=== PATIENT | female | born 1935 | race Caucasian/White ===

== ENCOUNTER 2024-06-06 13:02 | Outpatient (AMB) | payer MEDICARE, OTHER, SELFPAY ==
--- NOTE | 2024-06-06 13:06 | MHC.OFFVIS ---
Vital Signs 06/06/24 13:27 Height 5 ft 5 in Weight 210 lb BMI 34.9 Intake Visit Reasons: Left shoulder pain and weakness Intake Note: Wendy is a 88 year old female who presents with complaints of progressively worsening left shoulder pain and weakness. The patient states that her symptoms have gotten worse over the last few years in spite of continued non operative treatments. The patient states that she has not been able to lift her left hand up to shoulder height for at least 1 year. She states that her brother underwent total shoulder replacement surgery at the [facility] and is doing quite well. She has tried Tylenol which gives her minimal relief. The patient did undergo bilateral total knee replacement surgery by Dr. Mejia several years ago. She reports minimal discomfort in her knees. Allergies No Known Allergies Allergy (Mild, Verified 06/06/24 13:27) NOT APPLICABLE Physical Exam Vital Signs: BMI result Body Mass Index 34.9 Const Other: Well-nourished well-developed very friendly female awake alert and oriented x3 in no acute distress Extrem Other: Left shoulder examination shows decreased active range of motion but almost full passive range of motion when compared to her right shoulder, 2/5 strength with supraspinatus testing, mild crepitus with range of motion, no instability Results Reviewed Results Reviewed: X-rays of the patient's left shoulder show glenohumeral joint degenerative changes, subchondral sclerosis, osteophyte formation, no acute bony abnormalities Assessment & Plan Assessment & Plan (1) Left shoulder pain: Code(s): M25.512 - Pain in left shoulder Category: Medical Plan Ms. Goodrich presents with progressively worsening left shoulder pain and weakness most likely due to chronic rotator cuff tearing and subsequent rotator cuff tear arthropathy. I had a lengthy discussion with the patient regarding the treatment options. The patient may be a candidate for left total shoulder replacement surgery. Thus, I will have her evaluated by my partner, Dr. Cruz. She will continue with her gentle [id number]-[id number] exercises in the meantime. Feel free to call me at any time should questions regarding her orthopedic management arise. Thank you very much for asking me to see this very friendly patient. I spent 21 minutes in reviewing the patient's records and imaging studies, seeing the patient and documenting in the medical record. Orders: Orders XR shoulder LT min 2V 06/06/24 M25.512 - Pain in left shoulder Coding Level of Care Code Est Pt Level 3 (75615) Complex EM visit Add On G2211 Diagnoses Left shoulder pain M25.512
[2024-06-06 13:27] VITALS: BMI 34.9
== END 2024-06-06 13:44 | disposition home or self-care (01) ==
PROVIDERS: PCP Physician Assistant Medical; Visit Provider Orthopaedic Surgery
DX: M25.512 Pain in left shoulder (principal)
CPT/HCPCS: 99213; G2211

== ENCOUNTER 2024-06-06 14:31 | Outpatient (REF) | payer MEDICARE, OTHER, SELFPAY | END 2024-06-06 14:32 | disposition home or self-care (01) | LOC: HO.HOSX 14:31 | PROVIDERS: Visit Provider Orthopaedic Surgery | DX: M25.512 Pain in left shoulder (principal) | CPT/HCPCS: 73030; 99212 ==

== ENCOUNTER 2024-07-03 13:00 | Outpatient (AMB) | payer MEDICARE, SELFPAY ==
[2024-07-03 13:02] VITALS: BMI 34.9
--- NOTE | 2024-07-03 13:02 | MHC.OFFVIS ---
Vital Signs 07/03/24 13:02 Height 5 ft 5 in Weight 210 lb BMI 34.9 Intake Visit Reasons: OV - Left Shoulder OA - Discuss TSA Per DR Intake Note: Wendy is an 88 year old female who presents today for a follow up of her left shoulder as she was referred by Dr. Melo to discuss possible Left TSA. he patient states that her symptoms have gotten worse over the last few years in spite of continued non operative treatments. The patient states that she has not been able to lift her left hand up to shoulder height for at least 1 year. Allergies No Known Allergies Allergy (Mild, Verified 06/06/24 13:27) NOT APPLICABLE HPI HPI OV - Left Shoulder OA - Discuss TSA Per DR: Details: Wendy is an 88 year old female who presents today for a follow up of her left shoulder as she was referred by Dr. Melo to discuss possible Left TSA. he patient states that her symptoms have gotten worse over the last few years in spite of continued non operative treatments. The patient states that she has not been able to lift her left hand up to shoulder height for at least 1 year. Physical Exam Vital Signs: BMI result Body Mass Index 34.9 Extrem Other: Positive drop-arm Pain with external rotation to 25 degrees and forward flexion to 90. Passive abduction to 50 degrees with pain Results Reviewed Results Reviewed: I personally reviewed relevant radiographs. Moderate glenohumeral arthritis left shoulder Assessment & Plan Assessment & Plan (1) Rotator cuff arthropathy of left shoulder: Code(s): M12.812 - Other specific arthropathies, not elsewhere classified, left shoulder Category: Medical Plan: This is a 88-year-old woman with rotator cuff arthropathy of the left shoulder. She has some cardiac and balance issues. She states she would like to be able to engage in daily activities without pain. My opinion is that she should try physical therapy and injections. She does not want to try injections but is willing to try physical therapy. I think this is a good idea and she should try to avoid surgery as I think walking with a walker, her advanced age and her cardiac history are all risk factors and that shoulder arthroplasty should be the last resort. She can see me back in 3 months. Orders: Orders PT Evaluation and Treatment Today M12.812 - Other specific arthropathies, not elsewhere classified, left shoulder Coding Level of Care Code Est Pt Level 4 (27755) Diagnoses Rotator cuff arthropathy of left shoulder M12.815
== END 2024-07-03 13:42 | disposition home or self-care (01) ==
LOC: HO.HOS 13:01
PROVIDERS: PCP Physician Assistant Medical; Visit Provider Orthopaedic Surgery
DX: M12.812 Other specific arthropathies, not elsewhere classified, left shoulder (principal)
CPT/HCPCS: 99214

== ENCOUNTER → 2024-07-03 13:00 | Outpatient (BNVA) | payer MEDICARE, SELFPAY | PROVIDERS: PCP Physician Assistant Medical; Visit Provider Orthopaedic Surgery | DX: M12.812 Other specific arthropathies, not elsewhere classified, left shoulder (principal) | CPT/HCPCS: 99212 ==

== ENCOUNTER 2024-08-28 10:54 | Outpatient (RCR) | payer MEDICARE, OTHER, SELFPAY ==
--- NOTE | 2024-08-10 15:13 | MHC.PT.EP ---
[facility] [place] [facility] [place] [facility] [place] [facility] [address] Shantel Savage [address] [phone] F: [phone] F: [phone] F: [phone] F: [phone] Physical Therapy Plan of Care Date of Evaluation: 08/10/24 Date of Surgery: N/A Diagnosis: rotator cuff arthropathy of left shoulder (RL) Assessment: pt is a 88 y/o male presenting to physical therapy w/ referring diagnosis of rotator cuff arthropathy of left shoulder. Impairments include pain, decreased range of motion, decreased strength, impaired functional mobility, impaired postural awareness, and altered ambulation mechanics. pt is a fair candidate for skilled PT due to age, potential remediation of impairments, typical disease/condition progression and prognosis, comorbidities, and motivation. pt would benefit from skilled PT intervention to provide a tailored strengthening and stretching exercise program, functional training, gait training, postural re-training, neuromuscular re-education, modalities as needed for pain, equipment safety demonstration. Frequency and Duration: The patient will be seen 2x/wk for 4 wks Short Term Goals: pt will be I w/ HEP to promote self-management of condition. pt will improve L shoulder flexion by 10 degrees to promote ease in forward reaching. Ceo And President Goals: pt will report a statistically significant improvement in self-reported outcome measure, SPADI, to promote return to PLOF. pt will tolerate lifting 4# object w/ <3/10 L shoulder pain to promote return to functional lifting. Treatment Plan: Modalities to reduce pain, spasms and effusion. Manual therapy to restore motion and function. Therapeutic exercise to improve strength and flexibility. Neuromuscular re-education for posture and balance. Therapeutic activities to return to functional activities of daily living. Electronically signed by: Heather Hutchinson PT, DPT Please sign and return to therapist. Thank you for your referral.
--- NOTE | 2024-09-27 11:46 | MHC.PT.DC ---
[facility] [place] Office [place] Office [place] Office [address] Shantel Savage [address] [facility] [phone] F: [phone] F: [phone] F: [phone] F: [phone] Physical Therapy Discharge Report Diagnosis: rotator cuff arthropathy of left shoulder (RL) Date of Surgery: N/A Date of Evaluation: 08/10/24 Date of Discharge: 09/27/24 Treatments to Date: 3 Cancellations to Date: 4 No Shows to Date: 0 Discharge Status: Patient Elected to Stop Discharge Summary: The patient overall had poor tolerance of physical therapy interventions. She had difficulty tolerating any more than 5 repetitions of any given exercise. She was unable to tolerate soft tissue massage. She cancelled the remainder of her sessions. Electronically signed by: Heather Hutchinson PT, DPT Please sign and return to therapist. Thank you for your referral.
== END 2024-09-27 11:46 | disposition home or self-care (01) ==
LOC: HO.PT 10:54
PROVIDERS: PCP Physician Assistant Medical; Visit Provider Orthopaedic Surgery
DX: M12.812 Other specific arthropathies, not elsewhere classified, left shoulder (principal)
CPT/HCPCS: 97110; 97162